=== PATIENT | female | born 1925 | race Caucasian/White ===

== ENCOUNTER 2016-06-13 23:07 | Emergency (ER) | payer MEDICARE, BC ==
--- NOTE | 2016-06-13 23:16 | EDM.PDOC ---
ED HPI Trauma - General Chief Complaint: Lower Extremity Injury/Pain Stated Complaint: COMING BY ABULANCE FROM [facility] Time Seen by Provider: 06/13/16 23:10 - History of Present Illness INITIAL COMMENTS - FREE TEXT/NARRATIVE: reported fall at [facility], C/O pain variable between hip and pelvis. Sleeping on arrival , arouses to voice, no recollection of fall. No head trauma. Family here. [place] staff report patient attempting to get to [place] on own and fell half way between bed and bathroom, Found lying on right side yelling. arrival LRAS on full air sling. Occurred When: just prior to arrival Occurred Where: other Method of Injury: fall Severity: mild Consciousness: Reports: unsure Allergies/ADRs: Allergies Penicillins Allergy (Unknown, Verified 03/28/14 11:34) Rash Home Medications: Ambulatory Orders Acetaminophen [Tylenol] 650 mg PO TID 03/28/14 [Confirmed 03/28/14] Dorzolamide HCl/Timolol Maleat [Cosopt Eye Drops] 1 drop EYERT BID 03/28/14 [ Confirmed 03/28/14] Lutein/Minerals/Vit A,C & E [I-Erasto] 1 each PO DAILY 03/28/14 [Confirmed ] Mirtazapine 15 mg PO BEDTIME 03/28/14 [Confirmed 03/28/14] Polyethylene Glycol 3350 [Miralax] 17 gm PO DAILY 03/28/14 [Confirmed 03/28/14] Social & Family History - Tobacco Use Smoking Status *Q: Former Smoker Years of Tobacco use: 30 Used Tobacco, but Quit: Yes Month Tobacco Last Used: 1983 Second Hand Smoke Exposure: No - Alcohol Use Days Per Week of Alcohol Use: 0 - Recreational Drug Use Recreational Drug Use: No Review of Systems - Review of Systems Review Of Systems: Unable To Obtain Trauma Exam - Physical Exam Exam: See Below Exam Limited By: No limitations General Appearance: Reports: alert, no apparent distress (dozing arouses easily to voice) Head: Reports: atraumatic, normocephalic. Denies: scalp lacerations, scalp swelling, scalp abrasions, scalp ecchymosis, scalp hematoma, scalp tenderness Eyes: bilateral eye: EOMI, PERRL Ears: Reports: normal external exam, normal TMs Nose: Reports: normal inspection Throat/Mouth: Reports: Normal inspection, Normal voice Neck: Reports: non-tender, full range of motion, normal alignment Respiratory Exam: Reports: no respiratory distress, lungs clear, normal breath sounds Cardiovascular: Reports: normal peripheral pulses, regular rate, rhythm GI/Abdominal: Reports: normal bowel sounds, soft, non tender Back: Reports: full range of motion. Denies: paraspinal tenderness, vertebral tenderness Extremities: Reports: no evidence of injury, normal range of motion, tenderness ( biaterl upper femurs with palpation. ) Neurologic: Reports: alert, disoriented x 3. Denies: oriented x 3 (does not recognize daughter- normal for patient) Skin: Reports: Normal color, Warm/dry Course - Vital Signs Last Recorded V/S: Last Vital Signs Temp 98.7 F 06/13/16 23:00 Pulse 68 06/13/16 23:00 Resp 18 06/13/16 23:00 BP 145/65 H 06/13/16 23:00 Pulse Ox - Radiology Interpretation Free Text/Narrative:: hips and pelvis negative for fracture Departure - Departure Time of Disposition: 23:00 Disposition: DC/Tfer to [employer] 64 Condition: good Clinical Impression: Fall Hip pain Qualifiers: Laterality: bilateral Qualified Code(s): M25.551 - Pain in right hip Fall Qualifiers: Encounter type: initial encounter Qualified Code(s): W19.XXXA - Unspecified fall, initial encounter Dementia Qualifiers: Dementia type: unspecified type Dementia behavioral disturbance: without behavioral disturbance Qualified Code(s): F03.90 - Unspecified dementia without behavioral disturbance Instructions: Fall Prevention in the Home, [id number] Forms: ED Department Discharge Additional Instructions: fall precautions Resume previous long-term medications follow up if additional symptoms
[2016-06-13 23:46] VITALS: BP 145/65
== END 2016-06-14 01:10 ==
LOC: DL.ED 23:07
DX: M25.551 Pain in right hip (principal); F03.90 Unspecified dementia, unspecified severity, without behavioral disturbance, psychotic disturbance, mood disturbance, and anxiety; Z88.0 Allergy status to penicillin; Z87.891 Personal history of nicotine dependence; W19.XXXA Unspecified fall, initial encounter
CPT/HCPCS: 72192; 99284; 99285